=== PATIENT | female | born 1980 | race Caucasian/White ===

== ENCOUNTER 2017-02-04 18:46 | Emergency (ER) | payer BC ==
[~2017-02-04] VITALS: Ht 162.6 cm; Wt 71.0 kg
[2017-02-04 19:02] VITALS: Ht 162.6 cm; Wt 71.0 kg
[2017-02-04 23:04] LABS: ADD SCAN DIFF NO
[2017-02-04 23:07] LABS: BASOPHIL # 0.1 10^3/ul (0.0-0.1); BASOPHILS % 0.6 % (0.0-2.0); EOSINOPHILS # 0.2 10^3/ul (0.0-0.5); EOSINOPHILS % 2.9 % (0.0-7.0); HEMATOCRIT 38.2 % (37.0-47.0); HEMOGLOBIN 13.4 g/dl (12.0-16.0); LYMPHOCYTES # 2.8 10^3/ul (0.8-2.9); LYMPHOCYTES % 33.7 % (15.0-51.0); MEAN CORPUSCULAR HEMOGLOBIN 32.1 pg (29.0-33.0); MEAN CORPUSCULAR HGB CONC 35.1 g/dl (32.0-37.0); MEAN CORPUSCULAR VOLUME 91.6 fl (82.0-101.0); MEAN PLATELET VOLUME 9.8 fl (7.4-10.4); MONOCYTE # 0.6 10^3/ul (0.3-0.9); MONOCYTES % 7.6 % (0.0-11.0); NEUTROPHIL # 4.6 10^3/ul (1.6-7.5); NEUTROPHILS % 55.1 % (39.0-77.0); PLATELET COUNT 356 10^3/UL (140-415); RED BLOOD COUNT 4.17 10^6/ul (4.20-5.40); WHITE BLOOD COUNT 8.4 10^3/ul (4.8-10.8)
--- NOTE | 2017-02-04 23:30 | RADRPT ---
PROCEDURE: US OB. CLINICAL INDICATION: Positive . TECHNIQUE: Transabdominal and transvaginal views of the pelvis are available for review. COMPARISON: No prior studies are available for comparison. FINDINGS: Uterus: Normal; 10 x 5.8 x 5.1 cm. There is no evidence of myometrial mass. Endometrial cavity: No intrauterine is identified, the thickness is increased measuring 1 4.3 mm. Equivocal tiny endometrial cyst potentially an early gestational sac is measured at 1.4 x 1. 6 mm. Right ovary / adnexa: Ovarian size is normal measuring 2.6 x 2 x 1.8 cm and there is no evidence of adnexal mass. Normal blood flow on Doppler interrogation is present. Incidental corpus luteum cyst measures 2.1 x 1.6 x 1.5 cm Left ovary/adnexa: Ovarian size is normal measuring 2.2 x 1.1 x 1.2 cm with no evidence of ovarian or adnexal mass. Normal blood flow seen on Doppler interrogation. Cul-de-sac: No evidence of free fluid. RPTAT:HJJR IMPRESSION: 1. No certain intrauterine identified. Tiny anechoic 1.6 x 1.4 mm endometrial focus is equ ivocal for gestational sac. Ectopic is not excluded, but there are no suspicious findings at this time. Correlation with serial beta HCGs is suggested with followup as clinically indicated. 2. Corpus luteum cyst of the right ovary measures 2.1 x 1.6 x 1.5 cm. Physician Ruiz Date Time Electronically viewed and signed by Physician Ruiz on 02/04/2017 23:30 /
[2017-02-05 00:09] LABS: ADD UMIC YES; URINE BILIRUBIN (Dip) NEGATIVE (NEGATIVE); URINE BLOOD (Dip) NEGATIVE (NEGATIVE); URINE COLOR LT. YELLOW (YELLOW); URINE GLUCOSE (Dip) NEGATIVE (NEGATIVE); URINE KETONES (Dip) NEGATIVE (NEGATIVE); URINE LEUKOCYTE ESTERASE (Dip) TRACE (NEGATIVE); URINE NITRITE (Dip) NEGATIVE (NEGATIVE); URINE TOTAL PROTEIN (Dip) NEGATIVE (NEGATIVE); URINE UROBILINOGEN (Dip) 0.2 E.U./dL (0.1-1.0)
--- NOTE | 2017-02-05 00:14 | ERD ---
ER Documentation Chief Complaint Date/Time DATE: 02/05/17 TIME: 00:11 Chief Complaint states dysuria x 2 days. positive test HPI Patient is a 36-year-old female who is who presents to the ED with wanting an ultrasound and is complaining of dysuria. She denies any vaginal bleeding or cramping. She states that she had a positive test approximately 3 weeks ago but does not have a doctor and is curious to know "what is going on with her ." Patient denies fever or chills. She denies abdominal pain, nausea, vomiting or diarrhea. Denies headache or dizziness. Denies chest pain, cough, shortness of breath or difficulty breathing. Has no other complaints. ROS All systems reviewed and are negative except as per history of present illness. Medications Home Meds Active Scripts Nitrofurantoin Monohyd Macrocr* (Macrobid*) 100 Mg Capsr, 100 MG PO BID for 7 Days, CAP Prov:SUNSHINE RAO PA-C 02/05/17 Allergies Allergies: Coded Allergies: No Known Drug Allergies (Verified Allergy, Unknown, 02/04/17) PMhx/Soc History of Surgery: No Anesthesia Reaction: No Hx Neurological Disorder: No Hx Respiratory Disorders: No Hx Cardiac Disorders: No Hx Psychiatric Problems: No Hx Miscellaneous Medical Probl: Yes (GESTATIONAL DIABETES) Hx Alcohol Use: No Hx Substance Use: No Hx Tobacco Use: Yes (10/ DAY) Smoking Status: Current every day smoker FmHx Family History: No coronary disease, No diabetes, No other Physical Exam Vitals Vital Signs Date Time Temp Pulse Resp B/P Pulse Ox O2 Delivery O2 Flow Rate FiO2 02/04/17 19:02 98.3 97 20 112/65 97 Physical Exam GENERAL: Well-developed, well-nourished female. Appears in no acute distress. HEAD: Normocephalic, atraumatic. EYES: Pupils are equally reactive bilaterally. EOMs grossly intact. No conjunctival erythema. ENT: Moist mucous membranes. No uvula deviation. No kissing tonsils. No exudates. NECK: Supple. No lymphadenopathy or thyromegaly. No meningismus. negative kernig. negative brudinski. LUNG: Clear to auscultation bilaterally. No rhonchi, wheezing, rales or coarse breath sounds. HEART: Regular rate and rhythm. No murmurs, rubs or gallops. ABDOMEN: No scars, ecchymosis or rashes noted. Soft, nontender, and nondistended. Positive bowel sounds in all four quadrants. No rebound tenderness , no guarding. (-) McBurneys point tenderness. No CVA tenderness. BACK: No midline tenderness. Extremities: Equal pulses bilaterally. No peripheral clubbing, cyanosis or edema. No unilateral leg swelling. NEUROLOGIC: Alert and oriented. Moving all four extremities. 5/5 strength in all extremities. Normal speech. Steady gait. SKIN: Normal color. Warm and dry. No rashes or lesions. Capillary refill < 2 seconds Result Diagram: 02/04/172221 Results 24 hrs Laboratory Tests Test 02/04/17 22:00 02/04/17 22:22 Urine Color LT. YELLOW Urine Clarity CLEAR Urine pH 6.0 Urine Specific [place] 1.020 Urine Ketones NEGATIVE Urine Nitrite NEGATIVE Urine Bilirubin NEGATIVE Urine Urobilinogen 0.2 E.U./dL Urine Leukocyte Esterase TRACE Urine Microscopic RBC 0-2/HPF Urine Microscopic WBC 2-5/HPF Urine Squamous Epithelial Cells FEW Urine Hemoglobin NEGATIVE Urine Glucose NEGATIVE% Urine Total Protein NEGATIVE White Blood Count 8.410^3/ul Red Blood Count 4.1710^6/ul Hemoglobin 13.4g/dl Hematocrit 38.2% Mean Corpuscular Volume 91.6fl Mean Corpuscular Hemoglobin 32.1pg Mean Corpuscular Hemoglobin Concent 35.1g/dl Red Cell Distribution Width 12.0% Platelet Count 18055^3/UL Mean Platelet Volume 9.8fl Neutrophils % 55.1% Lymphocytes % 33.7% Monocytes % 7.6% Eosinophils % 2.9% Basophils % 0.6% Nucleated Red Blood Cells % 0.0/100WBC Neutrophils # 4.610^3/ul Lymphocytes # 2.810^3/ul Monocytes # 0.610^3/ul Eosinophils # 0.210^3/ul Basophils # 0.110^3/ul Nucleated Red Blood Cells # 0.010^3/ul Beta HCG, Quantitative 628.8mIU/ml Procedures/MDM ER COURSE: I kept the patient and/or family informed of laboratory and diagnostic imaging results throughout the emergency room course. EKG, MONITORS, & DIAGNOSTIC IMAGING: [address] [address] Radiology Main Line: [phone] DIAGNOSTIC IMAGING REPORT Patient: SHARON LEROY : 1980 Age: 36 Sex: F MR #: [id number] DOS: 02/04/17 2155 Ordering MD: SUNSHINE RAO PA-C [facility] Room/Bed: PROCEDURE: US OB. CLINICAL INDICATION: Positive . TECHNIQUE: Transabdominal and transvaginal views of the pelvis are available for review. COMPARISON: No prior studies are available for comparison. FINDINGS: Uterus: Normal; 10 x 5.8 x 5.1 cm. There is no evidence of myometrial mass. Endometrial cavity: No intrauterine is identified, the thickness is increased measuring 14.3 mm. Equivocal tiny endometrial cyst potentially an early gestational sac is measured at 1.4 x 1.6 mm. Right ovary / adnexa: Ovarian size is normal measuring 2.6 x 2 x 1.8 cm and there is no evidence of adnexal mass. Normal blood flow on Doppler interrogation is present. Incidental corpus luteum cyst measures 2.1 x 1.6 x 1.5 cm Left ovary/adnexa: Ovarian size is normal measuring 2.2 x 1.1 x 1.2 cm with no evidence of ovarian or adnexal mass. Normal blood flow seen on Doppler interrogation. Cul-de-sac: No evidence of free fluid. RPTAT:HJJR IMPRESSION: 1. No certain intrauterine identified. Tiny anechoic 1.6 x 1.4 mm endometrial focus is equivocal for gestational sac. Ectopic is not excluded, but there are no suspicious findings at this time. Correlation with serial beta HCGs is suggested with followup as clinically indicated. 2. Corpus luteum cyst of the right ovary measures 2.1 x 1.6 x 1.5 cm. Physician Ruiz Date Time Electronically viewed and signed by Physician Ruiz on 02/04/2017 23:30 JR/ CC: SUNSHINE RAO PA-C LAB INTERPRETATION: CBC showed no evidence of systemic infection or severe anemia. UA showed no evidence of leukocytes, nitrites or hematuria. Urine test was positive rh:ab+ bhc.[id number] MEDICAL DECISION MAKING: This is a 36-year-old female who is who presents with dysuria and wanting an ultrasound. Vital signs were reviewed. Patient is afebrile. Patient is not hypoxic. Patient is not toxic or ill-appearing. Her ultrasound is read by radiologist shows 1. No certain intrauterine identified. Tiny anechoic 1.6 x 1.4 mm endometrial focus is equivocal for gestational sac. Ectopic is not excluded, but there are no suspicious findings at this time. Correlation with serial beta HCGs is suggested with followup as clinically indicated. Corpus luteum cyst of the right ovary measures 2.1 x 1.6 x 1.5 cm. Low suspicion for ovarian torsion, PID, tuboovarian abscess, ectopic , bowel obstruction, pyelonephritis, UTI, appendicitis, cervicitis, septic , molar , HELLP syndrome, preeclampsia, eclampsia, placenta previa, placenta abruptia. DISCHARGE: Patient was called multiple times to explain results but there was no answer. I looked and called in the waiting room 2 times while the nurses did the same thing. I was unable to give patient her discharge paperwork or copy of her results. Patient was stable and hemodynamically stable. Patient is marked as eloped. Plan was to give patient Macrobid and copy of imaging and laboratory studies. Departure Diagnosis: Primary Impression: Dysuria Condition: Stable SUNSHINE RAO PA-C Feb 05, 2017 00:14
[2017-02-05] MEDS ORDERED: NITR-58 PO (00:19)
[2017-02-05 00:30] LABS: SQUAMOUS EPITHELIAL CELL,UR FEW; URINE RBCS 0-2 /HPF ([, 0])
== END 2017-02-05 02:00 | disposition left against medical advice (07) ==
LOC: FTE 18:46 → E/R 02-05 02:00
DX: O99.89 Other specified diseases and conditions complicating pregnancy, childbirth and the puerperium (principal); R30.0 Dysuria; F17.210 Nicotine dependence, cigarettes, uncomplicated; O99.331 Smoking (tobacco) complicating pregnancy, first trimester; Z3A.00 Weeks of gestation of pregnancy not specified
CPT/HCPCS: 36415; 76801; 76817; 81001; 84702; 85025; 86900; 86901; Z7502; 81003